=== PATIENT | female | born 1985 | race Caucasian/White ===

== ENCOUNTER → 2018-08-17 | Outpatient (CLI) | payer OTHER ==
[~2018-08-17] MED LIST: ACE500 PO; IBU600 PO; LOR5 PO; NIF10 PO; NIT100 PO; NO ROUTINE MEDS; PREN-85 PO; TER25 PO
--- NOTE | 2018-08-18 08:21 | RADIOLOGY IMAGING REPORT ---
FACILITY: [facility] PATIENT NAME: SEBLE TAN : [id number] MR: [id number] V: [id number] EXAM DATE: ORDERING PHYSICIAN: CJ MAI TECHNOLOGIST: Michelle Malone RDMS(ABD,OBGYN,BR),RVT PROCEDURE:US LEFT BREAST COMPARISON:None. INDICATIONS:PALPABLE LUMP LEFT BREAST 1 O'CLOCK VIEW OBTAINED: FINDINGS: In the 1 o'clock position of the Left breast 2cm from the nipple there is a 1.2 x 1.5 x 0.8cm ovoid circumscribed hypoechoic mass with faint acoustic enhancement. The mass is wider than tall. In the 3 o'clock position Left breast 1cm from the nipple there is a small cluster of cysts. In the 2 o'clock position Left breast 3cm from the nipple there is an additional cluster of cysts. DIAGNOSTIC CATEGORY 3--PROBABLY BENIGN FINDING. RECOMMENDATIONS: SIX MONTH FOLLOW-UP ULTRASOUND: LEFT BREAST. IMPRESSION: BIRADS 3: Probably benign finding. 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 However , due to the solid nature a 6 month follow up Left mammogram is recommended to document stability unless clinical findings warrant more immediate attention. Dictated by: Silvia Keating M.D. on 08/17/2018 at 15:36 Transcribed by: ABISAI on 08/18/2018 at 7:05 Approved by: Silvia Keating M.D. on 08/18/2018 at 8:18 [facility]
== END ==
LOC: MAMO 00:24
PROVIDERS: ATTEND Nurse Practitioner Family
DX: N63.21 Unspecified lump in the left breast, upper outer quadrant (principal)